=== PATIENT | female | born 1945 | race Caucasian/White ===

== ENCOUNTER → 2019-11-20 | Outpatient (CLI) | payer OTHER, BC ==
[~2019-11-20] VITALS: Ht 167.6 cm; Wt 85.7 kg
[~2019-11-20] MED LIST: PROTONIX40 M2 PO; XARELTO20 MG PO
[2019-11-20 13:38] LABS: URINE BILIRUBIN NEGATIVE (Negative); URINE BLOOD 1+ (Negative); URINE CLARITY CLEAR; URINE COLOR YELLOW; URINE GLUCOSE-RANDOM* NEGATIVE (Negative); URINE KETONES NEGATIVE (Negative); URINE LEUKOCYTES-REFLEX TRACE (Negative); URINE NITRITE-REFLEX NEGATIVE (Negative); URINE PROTEIN (DIPSTICK) NEGATIVE (Negative); URINE UROBILINOGEN 0.2 E.U./dl (0.2-1.0)
[2019-11-20 13:41] LABS: HEMATOCRIT 46.5 % (37.0-47.0); HEMOGLOBIN 16.1 gm/dL (12.0-15.0); MCHC 34.5 g/dL (28.0-37.0); MCV 92.6 fL (80.0-100.0); RBC 5.03 mil/uL (4.20-5.00); RDW 14.4 % (10.5-14.5); WBC 6.2 thou/uL (4.0-11.0)
[2019-11-20 13:48] LABS: INR 1.1; PROTIME 11.7 Seconds (9.3-11.4)
[2019-11-20 13:50] LABS: CALCIUM 8.5 mg/dL (8.5-10.1); CREATININE 0.6 mg/dL (0.6-1.0); POTASSIUM 4.8 mmol/L (3.5-5.1)
[2019-11-20 14:12] LABS: CASTS None Seen /LPF (None Seen); CRYSTALS None Seen /LPF (None Seen); SQUAMOUS 0-3 Few /LPF (0-3)
[2019-11-20 14:14] LABS: URINE RBC 0-2 Rare /HPF (0-2); URINE WBC-REFLEX 6-15 Few /HPF (0-5)
[2019-11-20 14:15] LABS: BACTERIA-REFLEX 1-9 Few /HPF (None Seen)
--- NOTE | 2019-11-20 16:16 | EKG ---
[facility] [place] [address] ELECTROCARDIOGRAM REPORT Name: YAZMINNEFTALIHECTORPOOL Letha Room #: PRE [facility] [place].#: [id number] Admission: Attend Phys: Lm Jin MD Discharge: Date of : 45 Report #: [id number] THIS REPORT FOR: cc: Rachele Fairbanks MD, Stephanie M. MD Lammoglia, Francisco J. MD ~ THIS REPORT FOR: //name// [facility] Test Date: 2019-11-20 Test Time: 13:38:45 Pat Name: POOL PROCTOR Department: Room: Gender: Manager Country: [place] : 1945 Requested By: Lm Jin Order Number: [id number] MD: Ulises Holman Measurements Intervals [place] Rate: 62 P: 79 SD: 150 QRS: 97 QRSD: 96 T: 25 QT: 345 QTc: 351 Interpretive Statements Sinus rhythm Atrial premature complex left atrial enlargement Right axis deviation Nonspecific ST-T wave change No previous ECG available for comparison Electronically Signed On 11-20-2019 16:16:18 CDT by Ulises Holman [email or web address] <ELECTRONICALLY SIGNED> By: Ulises Holman MD 11/20/19 1616 1338 1338 Ulises Holman MD /EPI
--- NOTE | 2019-11-21 16:22 | NUR ---
AT PAC APPT ON 11/20/19, PATIENT VERBALIZED THAT SINCE MAY OR June,, SHE HAS BEEN HAVING EPISODES OF HER HEART FEELING LIKE IT IS BEATING OUT OF HER CHEST AND LOW BLOOD PRESSURE. SHE HAS DISCUSSED WITH HER PCP AND NO TESTING HAD BEEN ORDERED. SHE DID STATE THAT SHE HAD AN ECHO DONE IN THE PAST. EKG COMPLETED AND REVIEWED BY DR LIMA. DR LIMA INSTRUCTED TO OBTAIN THE ECHO RESULTS. ECHO RESULTS, WHICH WAS DONE 02/28/18 WERE OBTAINED ON 11/21/[address] LIMA INFORMED. DR LIMA ORDERED CARDIOLOGY CONSULT. PATIENT INFORMED OF ORDER, PATIENT REQUESTS [facility]. RN SPOKE WITH [facility] SCHEDULING, APPT SET UP FOR 11/22/19 AT 0815.
== END ==
LOC: OR → PAC 09:00 → OR 12-02 09:24 → EDSTATUS 12-02 11:11 → OR 12-02 12:30
PROVIDERS: ATTEND Orthopaedic Surgery
DX: I51.7 Cardiomegaly (principal); E16.2 Hypoglycemia, unspecified

== ENCOUNTER → 2019-12-13 | Outpatient (CLI) | payer OTHER, BC | LOC: SJCVCIMAG 11:12 | PROVIDERS: ATTEND Internal Medicine | DX: I35.8 Other nonrheumatic aortic valve disorders (principal); Z79.899 Other long term (current) drug therapy; Z87.891 Personal history of nicotine dependence ==

== ENCOUNTER → 2020-02-17 | Outpatient (CLI) | payer OTHER, BC ==
[~2020-02-17] MED LIST changes: +FAMOTIDINE40 MG PO; +PROBIOTIC1 EAC7 PO
== END ==
LOC: LAB 14:10
PROVIDERS: ATTEND Student in an Organized Health Care Education/Training Program
DX: Z01.812 Encounter for preprocedural laboratory examination (principal); Z20.828 Contact with and (suspected) exposure to other viral communicable diseases

== ENCOUNTER 2020-02-20 06:07 | Inpatient (IN) | payer OTHER, BC ==
[2020-02-10 13:46] LABS: URINE BILIRUBIN NEGATIVE (Negative); URINE BLOOD TRACE (Negative); URINE CLARITY CLEAR; URINE COLOR YELLOW; URINE GLUCOSE-RANDOM* NEGATIVE (Negative); URINE KETONES NEGATIVE (Negative); URINE LEUKOCYTES-REFLEX NEGATIVE (Negative); URINE NITRITE-REFLEX NEGATIVE (Negative); URINE PROTEIN (DIPSTICK) NEGATIVE (Negative); URINE SPECIFIC GRAVITY <= 1.005 (1.005-1.035); URINE UROBILINOGEN 0.2 E.U./dl (0.2-1.0)
[2020-02-10 13:47] LABS: HEMOGLOBIN 14.3 gm/dL (12.0-15.0); MCH 30.6 pg (26.0-34.0); MCHC 33.3 g/dL (28.0-37.0); RBC 4.68 mil/uL (4.20-5.00); RDW 13.5 % (10.5-14.5)
[2020-02-10 14:05] LABS: ALBUMIN 3.8 g/dL (3.4-5.0); CREATININE 0.8 mg/dL (0.6-1.0); POTASSIUM 4.2 mmol/L (3.5-5.1)
[2020-02-10 14:06] LABS: PROTIME 10.5 Seconds (9.3-11.4)
[2020-02-11 01:06] LABS: GLYCOHEMOGLOBIN (HGB A1C) 5.2 % (4.8-5.6)
[~2020-02-20] VITALS: Ht 167.6 cm; Wt 85.7 kg
[2020-02-20 09:08] VITALS: BP 142/73
--- NOTE | 2020-02-20 11:02 | NUR ---
REPORT FROM POST OP NURSE AT 10:20 PATIENT ARRIVED ON UNIT AT 10:30 ALERT XS4 NO PAIN V.S. 94.6 18 86 141/66 O2 SAT = 95 RA HEIGHT = 5'6' WEIGHT = 189.0 PATIENT STATES HUNGRY AND IS TO BE DISCHARGED TODAY PER DR ROJAS.
[2020-02-20 14:59] VITALS: BP 142/73
[2020-02-20 15:04] VITALS: BP 142/73
--- NOTE | 2020-02-20 15:18 | NUR ---
DISCHARGE PAPERS REVIEWED WITH PATIENT SIGNED AND COPY IN CHART. ALL BELONGINGS PACKED AND SENT WITH PATIENT. IV ACSESS DCD. RX WAS ALREADY GIVEN TO PATIENT AT PRE OP APPT
[2020-02-20 15:49] VITALS: BP 142/73
--- NOTE | 2020-02-24 07:59 | O ---
[facility] [place] [address] OPERATIVE REPORT Name: POOL PROCTOR Room #: 446-P [facility] IN M.R.#: [id number] Admission: 02/20/20 Attend Phys: Lm Jin MD Discharge: 02/20/20 Date of : 45 Report #: [id number] THIS REPORT FOR: cc: Greer Brewer MD, Catherine A. MD Abraham,Lm Rayo MD ~ DATE OF SERVICE: 02/20/2020 PREOPERATIVE DIAGNOSIS: Left knee osteoarthritis. POSTOPERATIVE DIAGNOSIS: Left knee osteoarthritis. PROCEDURE: Left total knee arthroplasty using Navio robotic computer lab assistant. SURGEON: Lm Jin MD. STAYING MACHINE OPERATOR: Estephania Queen PA-C. INDICATIONS FOR STAYING MACHINE OPERATOR: Throughout the case, extensive retraction and manipulation of the knee was required. This was afforded to me by my computer lab assistant. ANESTHESIA: LMA with an adductor canal block. IMPLANTS: [employer] size 4 Journey II BCS cobalt chrome femur, a size 3 tibia, size 12 constrained polyethylene and size 32 patella. TOURNIQUET TIME: 56 minutes. ESTIMATED BLOOD LOSS: 25 mL. COMPLICATIONS: None. SPECIMENS: None. CONDITION UPON LEAVING THE OPERATING ROOM: Stable. INDICATIONS FOR PROCEDURE: The patient is a 74-year-old female with severe left knee osteoarthritis. She had failed conservative measures for this and after discussion with her, she elected for left total knee arthroplasty. DESCRIPTION OF PROCEDURE: Risks, benefits, alternatives, complications were discussed in detail with the patient including but not limited to risk of anesthesia, risk of damage to nerves, arteries, blood vessels, risk for infection, bleeding, risk for continued knee pain, need for reoperation. Informed consent was obtained from the patient. The left knee was appropriately [address] [address] OPERATIVE REPORT Name: YAZMINNEFTALIHECTORPOOL Monae Room #: 446-P [facility] IN M.R.#: [id number] Admission: 02/20/20 Attend Phys: Lm Jin MD Discharge: 02/20/20 Date of : 45 Report #: [id number] marked in the preoperative holding area. IV Ancef was given for preoperative antibiotics. Adductor canal block was placed by Anesthesia. She was brought to the operating room and placed in supine position on operating room table. LMA anesthesia was induced without complication. Tourniquet was placed on the left thigh. Left lower extremity was prepped and draped in normal sterile fashion. Timeout was performed properly identifying the patient and procedure as well as the instrumentation and implants. All in the operating room were in agreement. Left lower extremity was exsanguinated, tourniquet was inflated. Tourniquet time was 56 minutes. Standard midline approach to the knee was made with 10 blade through the skin. Dissection was taken down sharply to the fascia and deep flaps were developed medially and laterally. Fresh 10 blade was used to make a medial parapatellar arthrotomy and the knee was inspected. There was severe tricompartmental osteoarthritis. ACL and PCL were removed sharply. Reference pins were placed in the femur and the tibia. The knee was then digitally mapped using the [employer] robotic system. Intraoperative plan was made and we sized the size 4 femur with a size 3 tibia and a 10 spacer. After acceptance of the intraoperative plan, the distal femoral cut was made with a Navio bur. Distal femoral cutting block was pinned in place and chamfer cuts were made. Attention was turned to the tibia. Remainder of the menisci removed with Bovie cautery. Tibial resection guide was pinned in place using the Navio for placement and tibial resection was made. After this, flexion and extension gaps were then checked and found to be tight medially in flexion and extension. The medial osteophyte was then removed off the tibia and this balanced the knee well. Tibia was sized, found to be a size 3. The size 3 tibial trial was placed, pinned and punched. Size 4 femoral trial was placed and box cut was made. This was then trialed with a size 10 on up to a size 12 polyethylene and size 12 polyethylene demonstrated full extension with 1-2 millimeter of laxity medially throughout range of motion. There was up to 3 mm laterally and deep flexion. It was felt we could make up this with a constrained implant. A 9 mm was resected from the posterior surface of the patella and a size 32 patellar trial button was placed. Knee was taken through range of motion, found to be stable, found to have good patellar tracking. Trial components were removed. Bony ends were thoroughly irrigated with normal saline. Final size 3 tibia, size 4 Journey II BCS cobalt chrome femur and a size 32 patella were cemented in place using standard cementation techniques. While the cement cured, a periarticular injection consisting of morphine, ropivacaine, epinephrine and Toradol was placed around the knee joint capsule. After the cement cured, tourniquet was deflated. Hemostasis was obtained with Bovie cautery. A final size 12 constrained polyethylene was placed. A gram of vancomycin was placed deep in the joint. The fascia was closed with 0 Vicryl, skin was closed with 2-0 Vicryl, skin staple and a LINH dressing was applied. The patient tolerated [address] [address] OPERATIVE REPORT Name: POOL PROCTOR Room #: 446-P [facility].#: [id number] Admission: 02/20/20 Attend Phys: Lm Jin MD Discharge: 02/20/20 Date of : 45 Report #: [id number] this procedure well and went to recovery room under care of anesthesia postoperatively. <ELECTRONICALLY SIGNED> By: Lm Jin MD 02/24/20 0759 1035 1111 Lm Jin MD /nt
== END 2020-02-20 15:25 | disposition home or self-care (01) | DRG 470 ==
LOC: OR 06:07 → 4S 10:47 → OR 13:09 → 4S 15:25
PROVIDERS: ADMIT Orthopaedic Surgery; ATTEND Orthopaedic Surgery
DX: M17.12 Unilateral primary osteoarthritis, left knee (principal); Z88.1 Allergy status to other antibiotic agents; Z88.8 Allergy status to other drugs, medicaments and biological substances; Z79.899 Other long term (current) drug therapy
CPT/HCPCS: 10102; 50010; 50101; 50415; 50954; 51130; 51225; 51412; 53000; 53078; 56527; 56528; 57095; 57103; 57110; 57127; 58239; 62110; 62900; 64039; 70005

== ENCOUNTER → 2020-06-15 | Outpatient (CLI) | payer OTHER, BC | LOC: SJCVC 12:55 | PROVIDERS: ATTEND Internal Medicine | DX: I10 Essential (primary) hypertension (principal); G89.29 Other chronic pain; E78.2 Mixed hyperlipidemia; Z79.82 Long term (current) use of aspirin; Z87.891 Personal history of nicotine dependence; Z86.711 Personal history of pulmonary embolism; Z96.652 Presence of left artificial knee joint; Z88.1 Allergy status to other antibiotic agents ==

== ENCOUNTER → 2020-07-16 | Outpatient (CLI) | payer OTHER | LOC: CAT 10:07 | PROVIDERS: ATTEND Family Medicine | DX: Z13.6 Encounter for screening for cardiovascular disorders (principal); I25.10 Atherosclerotic heart disease of native coronary artery without angina pectoris; E78.00 Pure hypercholesterolemia, unspecified ==

== ENCOUNTER → 2020-08-17 | Outpatient (CLI) | payer OTHER, BC | LOC: SJCVC 12:54 | PROVIDERS: ATTEND Internal Medicine | DX: I48.0 Paroxysmal atrial fibrillation (principal); R93.1 Abnormal findings on diagnostic imaging of heart and coronary circulation; E78.2 Mixed hyperlipidemia; I10 Essential (primary) hypertension; M48.061 Spinal stenosis, lumbar region without neurogenic claudication; G89.29 Other chronic pain; M54.5 Low back pain; R00.2 Palpitations; Z96.652 Presence of left artificial knee joint; Z88.8 Allergy status to other drugs, medicaments and biological substances; Z79.82 Long term (current) use of aspirin; Z79.899 Other long term (current) drug therapy; Z86.718 Personal history of other venous thrombosis and embolism; Z87.891 Personal history of nicotine dependence; Z82.49 Family history of ischemic heart disease and other diseases of the circulatory system ==

== ENCOUNTER → 2021-03-19 | Outpatient (CLI) | payer OTHER, BC | LOC: SJCVC 10:45 | PROVIDERS: ATTEND Internal Medicine | DX: I48.0 Paroxysmal atrial fibrillation (principal); R00.2 Palpitations; I10 Essential (primary) hypertension; R93.1 Abnormal findings on diagnostic imaging of heart and coronary circulation; E78.2 Mixed hyperlipidemia; Z87.891 Personal history of nicotine dependence; Z88.1 Allergy status to other antibiotic agents; Z88.8 Allergy status to other drugs, medicaments and biological substances; Z91.018 Allergy to other foods; Z79.899 Other long term (current) drug therapy; Z82.49 Family history of ischemic heart disease and other diseases of the circulatory system ==

== ENCOUNTER → 2021-05-04 | Outpatient (CLI) | payer OTHER, MEDICARE | LOC: SJCVC 12:46 | PROVIDERS: ATTEND Internal Medicine | DX: I48.0 Paroxysmal atrial fibrillation (principal); I10 Essential (primary) hypertension; R06.00 Dyspnea, unspecified; Z88.8 Allergy status to other drugs, medicaments and biological substances; Z82.49 Family history of ischemic heart disease and other diseases of the circulatory system; Z87.891 Personal history of nicotine dependence; Z79.899 Other long term (current) drug therapy ==